=== PATIENT | female | born 1975 | race Hispanic/Latino ===

== ENCOUNTER → 2016-09-24 | Outpatient (CLI) | payer OTHER ==
--- NOTE | 2016-09-24 14:54 | MAM ---
History: Right breast nodule. DATE OF SERVICE: 09/24/2016 Services provided: Full field digital bilateral diagnostic mammography. CAD, the images were reviewed with R2 computer aided detection. FINDINGS: Routine, true lateral and exaggerated lateral craniocaudal projection views are obtained of each breast. Outside evaluation of the 3-D exam is not available for review however report indicates that the patient was called back for right breast nodule. This examination was performed greater than two years ago. Scattered glandular pattern is shown bilaterally. No dominant mass, architectural distortion or clustered microcalcification. Benign-appearing lymph nodes in the right axilla are partially demonstrated. IMPRESSION: Benign exam. Recommendation: Routine annual mammography. Findings and recommendations were communicated to the patient. BIRAD CATEGORY: 2 BENIGN Electronically signed by: Kaitlynn Cross MD 09/24/2016 2:54 PM CDT Workstation: [id number]
== END ==
LOC: MAMMO 14:19
PROVIDERS: ATTEND Family Medicine
DX: R92.8 Other abnormal and inconclusive findings on diagnostic imaging of breast (principal)